=== PATIENT | female | born 1995 | race Caucasian/White ===

== ENCOUNTER 2017-08-03 20:32 | Emergency (ER) | payer BC, SELFPAY ==
[2017-08-03] MEDS ORDERED: Ondansetron ODT 4 MG TAB ONE (20:38)
[2017-08-03 23:17] LABS: #Eosinphils 0.2 thou/uL (0.0-0.7); #Lymphocytes 1.8 thou/uL (1.20-3.40); #Monocytes 0.5 thou/uL (0.11-0.59); #Neutrophils 8.4 thou/uL (1.40-6.50); %Basophils 0.5 % (0.0-1.0); %Lymphocytes 16.4 % (21.0-51.0); %Monocytes 4.6 % (0.0-10.0); %Neutrophils 76.5 % (42.0-75.0); Mean Corpuscular HGB CONC 33.4 g/dL (32.0-36.0); Mean Corpuscular Hemoglobin 31.5 pg (27.0-31.0); Mean Corpuscular Volume 94.4 fl (81.0-99.0); Mean Platelet Volume 9.1 fL (7.4-10.4); Platelet Count 262 thou/uL (130-400); RBC Distribution Width 11.5 % (11.5-14.5); Red Blood Cell (RBC) Count 5.09 mill/uL (4.20-5.40); White Blood Cell (WBC) Count 10.9 thou/uL (4.8-10.8)
[2017-08-03 23:26] LABS: ALT (SGPT) 43 U/L (8-55); AST (SGOT) 17 U/L (5-34); Albumin 4.9 g/dL (3.5-5.0); Alkaline Phosphatase 71 U/L (40-150); Anion Gap 13 mmol/L (10-20); BUN (Urea Nitrogen) 10 mg/dL (7.0-18.7); Calc. Creatinine Clearance 0 mL/min (70-130); Calcium 9.6 mg/dL (7.8-10.44); Carbon Dioxide 23 mmol/L (22-29); Chloride 106 mmol/L (98-107); Estimated GFR-MDRD Greater than 90; Globulin 3.6 g/dL (2.4-3.5); Glucose 93 mg/dL (70-105); Lipase 16 U/L (8-78); Potassium 3.4 mmol/L (3.5-5.1); Protein, Total 8.5 g/dL (6.0-8.3); Sodium 139 mmol/L (136-145)
== END 2017-08-04 00:44 | disposition home or self-care (01) ==
LOC: ERS 20:32
DX: R11.2 Nausea with vomiting, unspecified (principal); R19.7 Diarrhea, unspecified; J45.909 Unspecified asthma, uncomplicated; F17.210 Nicotine dependence, cigarettes, uncomplicated; Z71.6 Tobacco abuse counseling
CPT/HCPCS: 80053; 83690; 85025; 96361; 96372; 96374; 99406; J2270; Q0162

== ENCOUNTER 2017-08-05 11:07 | Emergency (ER) | payer SELFPAY ==
[2017-08-05 12:08] LABS: Bilirubin Negative (Negative); Blood, Urine Negative (Negative); Clarity CLEAR (Clear); Glucose, Urine (Dipstick) Negative (Negative); Leukocyte Small (Negative); Nitrite Negative (Negative); Protein, Urine (Dipstick) Negative (Neg-Trace); Specific Gravity, Urine 1.017 (1.002-1.036); Urobilinogen 0.2 mg/dL (0.2-1.0)
[2017-08-05 12:09] LABS: Pregnancy Test - Urine (BHCG) Negative (Negative); Pregu Control Background? CLEAR/WHITE (CLR/WHITE); Pregu Control Bar Appear? YES (CONTROL BAR); Specific Gravity 1.017 (1.002-1.036)
[2017-08-05 12:11] LABS: Bacteria/HPF 1+ HPF (None Seen); Hyaline Casts/LPF 0-3 HYALINE CAST LPF (0-3 Hyaline); RBC/HPF 0-3 HPF (0-3); Squamous Epithelial 0-3 HPF (0-3); WBC/HPF 0-3 HPF (0-3)
[2017-08-05 12:33] LABS: #Basophils 0.1 thou/uL (0.0-0.2); #Eosinphils 0.1 thou/uL (0.0-0.7); #Lymphocytes 1.9 thou/uL (1.20-3.40); #Monocytes 0.5 thou/uL (0.11-0.59); #Neutrophils 3.6 thou/uL (1.40-6.50); %Basophils 1.5 % (0.0-1.0); %Eosinophils 1.9 % (0.0-10.0); %Lymphocytes 30.6 % (21.0-51.0); %Monocytes 8.5 % (0.0-10.0); %Neutrophils 57.6 % (42.0-75.0); Hemoglobin 14.3 g/dL (12.0-16.0); Mean Corpuscular HGB CONC 33.9 g/dL (32.0-36.0); Mean Corpuscular Hemoglobin 31.7 pg (27.0-31.0); Mean Corpuscular Volume 93.5 fl (81.0-99.0); Mean Platelet Volume 8.5 fL (7.4-10.4); Platelet Count 231 thou/uL (130-400); RBC Distribution Width 11.3 % (11.5-14.5); Red Blood Cell (RBC) Count 4.52 mill/uL (4.20-5.40); White Blood Cell (WBC) Count 6.3 thou/uL (4.8-10.8)
[2017-08-05 12:51] LABS: ALT (SGPT) 33 U/L (8-55); AST (SGOT) 11 U/L (5-34); Alkaline Phosphatase 62 U/L (40-150); Anion Gap 8 mmol/L (10-20); BUN (Urea Nitrogen) 8 mg/dL (7.0-18.7); Bilirubin, Total 0.9 mg/dL (0.2-1.2); Calc. Creatinine Clearance 0 mL/min (70-130); Carbon Dioxide 27 mmol/L (22-29); Chloride 104 mmol/L (98-107); Estimated GFR-MDRD Greater than 90; Globulin 2.8 g/dL (2.4-3.5); Glucose 87 mg/dL (70-105); Potassium 3.3 mmol/L (3.5-5.1); Protein, Total 6.8 g/dL (6.0-8.3); Sodium 136 mmol/L (136-145)
== END 2017-08-05 15:32 | disposition home or self-care (01) ==
LOC: ERS 11:07
DX: R19.7 Diarrhea, unspecified (principal); J45.909 Unspecified asthma, uncomplicated; F17.200 Nicotine dependence, unspecified, uncomplicated
CPT/HCPCS: 36415; 80053; 81003; 81015; 81025; 82274; 83630; 85025; 87045; 87046; 87449; 87899; 99284

== ENCOUNTER 2019-05-06 18:30 | Day surgery (SDC) | payer OTHER ==
[2019-05-06] MEDS ORDERED: hydrALAZINE 20 MG/ML VIAL SLOW IVP PRN (19:50)
--- NOTE | 2019-05-06 20:11 | HP ---
TIME OF EVALUATION: 1950 hours. LOCATION: Triage bed A. This is a patient of Dr. Susan Pimentel. REASON FOR EVALUATION: Decreased movement at 29 weeks. HISTORY OF PRESENT ILLNESS: This is a 24-year-old G1 at 29 weeks and 1 day with decreased movement. She denies contractions or leakage of fluid or vaginal bleeding. She denies any recent trauma. She denies any other issues. REVIEW OF SYSTEMS: Complete review of systems was completed and is otherwise negative unless specified in the HPI. PAST MEDICAL HISTORY: Negative. PAST SURGICAL HISTORY: Tonsils and adenoids. ALLERGIES: NONE. SOCIAL HISTORY: Noncontributory. OB HISTORY: She is a G1, P0. PHYSICAL EXAMINATION: VITAL SIGNS: Blood pressure is 127/59, pulse is 80, respirations are 20 unlabored, and her temperature is 98.7. GENERAL: She is in no acute distress. ABDOMEN: Soft and nontender. PELVIC: Deferred as there is no evidence of contractions or labor. On monitor, heart tones are in the 130s to 140s with moderate variability and criteria is met for reactive nonstress test. No contractions were evident on tocodynamometer. ASSESSMENT: This is a 29 week with decreased movement, which may be likely due to gestational age. No evidence of compromise at this time based on nonstress test. PLAN: 1. Reassurance given based on nonstress. 2. Okay for a short-term followup. 3. No evidence of labor. Job ID: [id number]
[2019-05-06 20:34] VITALS: BP 127/59; TEMP 98.7; BMI 33.3
== END 2019-05-06 20:15 | disposition home or self-care (01) ==
LOC: L&D/OP 18:30
PROVIDERS: ATTEND Obstetrics & Gynecology
DX: O36.8130 Decreased fetal movements, third trimester, not applicable or unspecified (principal); Z3A.29 29 weeks gestation of pregnancy

== ENCOUNTER 2019-07-10 04:48 | Day surgery (SDC) | payer OTHER ==
[2019-07-10 05:23] VITALS: BMI 40.9
[2019-07-10] MEDS ORDERED: hydrALAZINE 20 MG/ML VIAL SLOW IVP PRN (05:46)
--- NOTE | 2019-07-10 05:46 | PDOC.FPROB ---
FMR OB H&P: HPI - History of Present Illness Chief Complaint: contractions Indentification: 24 yo at 38.3 wga by LMP/1T sono History of Present Illness: Pt is here for contractions which started at 23:30 on 07/09/2019. Describes them as stomach tightening. Denies vaginal pressure/pelvic or back pain.Was in [place] w/ mother so they drove here. Contractions intermittent at first but have become regular, ~every 3-4 min. Denies VB, LOF. +FM. Some vaginal discharge lately which she thinks is her mucus plug. +nausea and vomiting w/ contractions. Unable to keep much water down lately. Has felt lightheaded at times and experienced hot flashes; would lay down and feel better. Primary Care Physician: KARLEY: Alfredo FMR OB H&P: Current - Care : 1 Para: 0 Gestational age: 38.3 Due date: 07/21/2019 Dating Criteria: LMP/1T sono Course/Complications: Obesity. Denies taking PNV. 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 - Family History Family History: Denies FMR OB H&P: Medications - Current Allergies/Adverse Reactions: Allergies Allergy/AdvReac Type Severity Reaction Status Date / Time No Known Allergies Allergy Verified 05/06/19 19:36 FMR OB H&P: ROS - Review of Systems General: reports: fatigue (sleeping more than usual lately), recent trauma ( slipped down 3 steps 2 days ago, did not note any problems afterwards). denies : fever/chills ENT: denies: nasal congestion, rhinorrhea Cardiovascular: reports: edema (in upper and lower extremities w/ ). denies: chest pain Respiratory: denies: cough, shortness of breath Gastrointestinal: reports: abdominal pain, nausea, vomiting. denies: diarrhea Genitourinary (Female): reports: vaginal discharge, contractions. denies: dysuria, hematuria, vaginal pain, vaginal bleeding, vaginal pressure Musculoskeletal: denies: pain Neurologic: denies: numbness, syncope, loss of counsciousness Integumentary: denies: itching Hematologic/Lymphatic: denies: prolonged or excessive bleeding Psychological: denies: depression, anxiety FMR OB H&P: Vital Signs - Maternal Vital signs: BP 130s/80s. - Heart Tones Baseline: 140 (reactive) Variability: moderate Acceleration: present Deceleration: absent Category: category 1 [place] contractions every: 2-4 minutes FMR OB H&P: Physical Exam - Physical Exam General: NAD, awake, alert and oriented (talking normally in full sentences) HEENT: normocephalic and atraumatic, conjunctiva clear, grossly normal vision, grossly normal hearing Deviation from normal: mucus membranes appear dry Neck: trachea midline Heart: RRR, normal S1/S2, no murmurs/rubs/gallops Deviation from normal: mild nonpitting edema bilaterally in LE General: CTAB, no respiratory distress Abdomen: soft, gravid Musculoskeletal: pulses present Skin: no rash Lymphatic: no unusual bruising or bleeding - Pelvic Exam SVE: 1/thick/high per nursing Membranes: intact Presentation: cephalic per nursing on cervical check Estimated Weight: 9 lbs FMR OB H&P: A/P - Problem List (1) Term Current Visit: Yes Status: Acute Code(s): Z34.90 - ENCNTR FOR SUPRVSN OF NORMAL , UNSP, UNSP TRIMESTER Disposition: observe on L&D. Discussion: Date/Time: 07/10/19 0546 24 yo here for: Contractions - continuous EFM/toco monitoring on L&D for next 1-2 hours - 1/thick/high on SVE - will recheck in 1-2 hours - pt appears comfortable and not in acute distress w/ contractions. Nausea, vomiting Dehydration - will give SL zofran - encourage oral hydration after zofran is given. - if not tolerating oral hydration, will give 1 L of fluids Term IUP - scheduled to see PCP today at 11:00. This H&P was discussed with Dr. Grissom and Dr. Chairez, who agree with the above documentation and plan. Signature: Preston Judge MD PGY1
[2019-07-10] MEDS ORDERED: Ondansetron ODT 8 MG TAB SL SCH ×2 (05:47→06:00)
--- NOTE | 2019-07-10 06:25 | PDOC.BPN ---
- Brief Progress Note Pt was given sublingual zofran. Is feeling better. Contractions have spaced out some. She is not feeling contractions much and is quite comfortable. Recheck of cervix is the same: 1/thick/high. She may f/u w/ PCP at her appt today. We will d/c her with some zofran for nausea/vomiting. Encourage oral hydration. Return/labor precautions given. Discussed w/ Dr. Chairez who agrees w/ plan.
== END 2019-07-10 06:42 | disposition home or self-care (01) ==
LOC: L&D/OP 04:48
PROVIDERS: ATTEND Family Medicine
DX: O47.1 False labor at or after 37 completed weeks of gestation (principal); O99.283 Endocrine, nutritional and metabolic diseases complicating pregnancy, third trimester; E86.0 Dehydration; Z3A.38 38 weeks gestation of pregnancy
CPT/HCPCS: 99282

== ENCOUNTER 2019-07-10 20:28 | Inpatient (IN) | payer OTHER ==
[2019-07-10] MEDS ORDERED: Ondansetron PF 4 MG/2 ML Vial IVP PRN ×2 (21:07→22:48)
[2019-07-10] MEDS ORDERED: Promethazine HCl 25 MG/ML VIAL IM PRN ×2 (21:07→22:48)
[2019-07-10] MEDS ORDERED: hydrALAZINE 20 MG/ML VIAL SLOW IVP PRN (21:07)
[2019-07-10] MEDS ORDERED: Lidocaine 1% (PF) 30 ML VIAL SC PRN (21:07)
[2019-07-10] MEDS ORDERED: NS / Oxytocin 40 units/1000ml 1,000 ML IV PRN (21:07)
[2019-07-10 21:12] VITALS: BMI 40.8
[2019-07-10] MEDS: Lactated Ringer's 1,000 ML IV SCH ×2 (21:25→22:01)
[2019-07-10 21:42] LABS: Hemoglobin 12.9 g/dL (12.0-16.0); Mean Corpuscular HGB CONC 33.6 g/dL (32.0-36.0); Mean Corpuscular Hemoglobin 28.6 pg (27.0-31.0); Mean Corpuscular Volume 85.1 fL (78.0-98.0); Mean Platelet Volume 9.8 fL (7.4-10.4); Platelet Count 254 thou/uL (130-400); RBC Distribution Width 14.1 % (11.5-14.5); Red Blood Cell (RBC) Count 4.49 mill/uL (4.20-5.40); White Blood Cell (WBC) Count 12.5 thou/uL (4.8-10.8)
[2019-07-10] MEDS ORDERED: Fentanyl 4 mcg/Bup 0.1% Cadd 100 ML ONE (21:47)
[2019-07-10] MEDS ORDERED: Lidocaine 1.5%/Epinephrine 1:200,000 5 ML AMPUL IJ ONE (22:10)
[2019-07-10] MEDS ORDERED: Fentanyl 100 MCG/2 ML VIAL ONE (22:10)
--- NOTE | 2019-07-10 22:14 | PDOC.FPROB ---
FMR OB H&P: HPI - History of Present Illness Chief Complaint: water broke Indentification: 24 yo at 38.3 wga by LMP/1T sono History of Present Illness: Pt here because her water broke at 18:11 this evening. Described as some leaking , went to bathroom, followed by big gush of fluid. Has been having contractions since this AM. No VB. +FM. 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 - Social History Social History: denies - Family History Family History: denies FMR OB H&P: Medications - Current Home Medications: Medication Instructions Recorded Confirmed Type Ondansetron [Zofran ODT] 4 mg PO Q6HR PRN 7 Days #20 tab 07/10/19 Rx Allergies/Adverse Reactions: Allergies Allergy/AdvReac Type Severity Reaction Status Date / Time No Known Allergies Allergy Verified 07/10/19 21:14 FMR OB H&P: ROS - Review of Systems General: denies: fever/chills, weight/appetite/sleep changes, recent trauma Eyes: denies: vision changes ENT: denies: nasal congestion, sore throat Cardiovascular: denies: chest pain Respiratory: denies: cough, shortness of breath Gastrointestinal: denies: abdominal pain, nausea, vomiting Genitourinary (Female): reports: vaginal pain, contractions, vaginal pressure. denies: dysuria, vaginal discharge, vaginal bleeding Musculoskeletal: denies: pain Neurologic: denies: seizures Integumentary: denies: itching, rash Hematologic/Lymphatic: denies: prolonged or excessive bleeding Psychological: denies: depression, anxiety FMR OB H&P: Vital Signs - Maternal Vital signs: vital signs wnl - Heart Tones Baseline: 120 Variability: moderate Acceleration: present Deceleration: absent Category: category 1 [place] contractions every: 2-4 min FMR OB H&P: Physical Exam - Physical Exam General: NAD, awake, alert and oriented HEENT: normocephalic and atraumatic, conjunctiva clear, no scleral icterus, grossly normal vision, grossly normal hearing Neck: supple, FROM, trachea midline Breast: symmetric Heart: RRR, normal S1/S2, no murmurs/rubs/gallops General: CTAB, no respiratory distress, no wheezing Abdomen: soft, gravid Musculoskeletal: normal gait and station Neurological: no focal deficit Skin: no rash, good tugor Lymphatic: no unusual bruising or bleeding Psychiatric: intact recent and remote memory, normal mood and affect - Pelvic Exam SVE: 5 cm per nursing Membranes: ruptured, leaking fluid Presentation: cephalic Estimated Weight: 9 lbs FMR OB H&P: Results - Labs Lab results: Laboratory Results - last 24 hr 07/10/19 07/10/19 21:34 21:34 WBC 12.5 H RBC 4.49 Hgb 12.9 Hct 38.2 MCV 85.1 MCH 28.6 MCHC 33.6 RDW 14.1 Plt Count 254 MPV 9.8 Blood Type A POSITIVE Antibody Screen NEGATIVE FMR OB H&P: A/P - Problem List (1) Active labor at term Current Visit: Yes Status: Acute Code(s): YCR1123 - (2) SROM (spontaneous rupture of membranes) Current Visit: Yes Status: Acute Code(s): [id number] - (3) Term Current Visit: No Status: Acute Code(s): Z34.90 - ENCNTR FOR SUPRVSN OF NORMAL , UNSP, UNSP TRIMESTER Disposition: admit to L&D for anticipation of Discussion: Date/Time: 07/10/19 2213 24 yo presents at 38.3 wga for: SROM during latent phase of labor Now in active phase at Term - pt at L&D earlier this AM for contractions but not making cervical change. - SROM at 18:11 and contractions ensued - admit to L&D - routine orders - cervical checks q2h - GBS negative, no abx ppx - anticipate This H&P was discussed with Dr. Grissom and Dr. Cochran, who agree with the above documentation and plan. Signature: Marvin Judge MD PGY1
[2019-07-10 22:23] LABS: Syphilis Antibody Nonreactive (Nonreactive); Syphilis Antibody Index 0.05 S/CO (<1.00 Non-Reactive)
[2019-07-10] MEDS ORDERED: Bupivacaine 0.25% HCL 30 ML VIAL ONE (22:31)
[2019-07-10] MEDS ORDERED: Acetaminophen 325 MG TAB PO PRN (22:48)
[2019-07-10] MEDS ORDERED: Lactated Ringer's 500 ML IV PRN (22:48)
[2019-07-10] MEDS ORDERED: diphenhydrAMINE 50 MG/ML VIAL IVP PRN (22:48)
[2019-07-10] MEDS ORDERED: ePHEDrine/0.9% NaCl/PF SYRINGE 50 mg/10 ml SLOW IVP PRN (22:48)
[2019-07-10] MEDS ORDERED: Naloxone HCl 0.4 mg/ml Vial IVP PRN ×2 (22:48)
[2019-07-10] MEDS ORDERED: Fentanyl 4 mcg/Bupivacaine 0.1% Cassette 100 ML EPIDURAL SCH (23:00)
[2019-07-10] MEDS ORDERED: Communication Order-Pharmacy FS SCH (23:00)
--- NOTE | 2019-07-10 23:10 | PDOC.BPN ---
- Brief Progress Note /-1 cxns q2-4, good variability, accels present, no decels epidural in place GBS neg expectant mgmt
[2019-07-10 23:16] LABS: HBSAg Index 0.34 S/CO (0-0.99); Hep B Surf Ag Non-Reactive S/CO (NonReactive)
[2019-07-11] MEDS ORDERED: NS / Oxytocin 40 units/1000ml 1,000 ML ONE (00:40)
[2019-07-11] MEDS ORDERED: Lidocaine 1% (PF) 30 ML VIAL ONE (00:40)
--- NOTE | 2019-07-11 01:01 | PDOC.BPN ---
- Brief Progress Note Nurse checked pt who was feeling pressure. SVE: complete/0. Updated Dr. Fuentes, Dr. Cochran Anticipate . Will begin pushing upon above physicians arrival.
--- NOTE | 2019-07-11 02:05 | PDOC.OPDEL ---
OB Operative/Delivery Note Delivery Dr/Surgeon: Alfredo Judge Assist: Dimas (attending) Pre-Delivery Diagnosis: active labor Procedure/Post Delivery Dx: spontaneous vaginal delivery Weeks gestation: 38 (38.4 wga) Anesthesia: local - Additional Findings/Plan Placenta delivered: spontaneous Repaired Obstetrical Laceration: 2nd degree Compilations/Other Findings: Procedure: Spontaneous Vaginal Delivery Anesthesia: epidural, Local for Repair QBL: 550 ml Pre-op Diagnosis: 1. Term intrauterine in labor 2. Hx of macrosomia, hx of preeclampsia, hx of infections Post-op Diagnosis: 1. Term intrauterine , delivered 2. same as above Indications: A 24y/o female presents in active labor Delivery Note: This is 24yo F @ 38.4 wks who delivered a viable F at 0131. Following an uneventful antepartum course, a vigorous female was delivered over an intact perineum in the R occipitoanterior position. Anterior Shoulder and then remainder of the body delivered. No nuchal cord. The head was held down and mouth and nares were bulb suctioned. Cord clamped after delayed cord clamping and cut and cord blood collected. Placenta delivered intact in the [place] presentation with a 3 vessel cord noted. Fundal massage was performed and the fundus was firm. The cervix and vagina were inspected and found to have 2nd deg laceration noted and repaired in the usual fashion with good approximation and hemostasis after a local anesthetic was injected at site. Infant went to nursery in good condition for routine care. Apgars were 8/9 at 1 & 5 minutes, respectively. Patient tolerated delivery well and went to after routine recovery/care. Post delivery plan: routine recovery Addendum - Attending - Attending Attestation Date/Time: 07/11/19 1252 I was present, assisted and supervised the of this viable female over an intact perineum @0131 on 07/11/2019. This is a 24 yo @38.4 weeks who presented c/o ctx and LOF. She was found to be 6cm in active labor with Category 1 FHTs. She progressed rapidly to complete and had a of a viable female . Apgars 9/9. Loose body cord. Shoulders and body delivered easily Cord clamped and cut. 3V cord. Placenta delivered spontaneously and intact. 2* perineal laceration repaired with 3-0 vicryl in usual fashion. Good hemostasis. QBL 550 mL. Resident: Juan
[2019-07-11] MEDS ORDERED: Bisacodyl 10 MG SUPP PR PRN (03:38)
[2019-07-11] MEDS ORDERED: hydrALAZINE 20 MG/ML VIAL SLOW IVP PRN (03:38)
[2019-07-11] MEDS ORDERED: Ondansetron PF 4 MG/2 ML Vial IVP PRN (03:38)
[2019-07-11] MEDS ORDERED: NS / Oxytocin 40 units/1000ml 1,000 ML IV SCH (03:38)
[2019-07-11] MEDS ORDERED: Lanolin Ointment 7 GM TUBE TOP PRN (03:38)
[2019-07-11] MEDS ORDERED: Preparation H Ointment 57 gram tube RC PRN (03:38)
[2019-07-11] MEDS ORDERED: Milk Of Magnesia 30 ML UDCUP PO PRN (03:38)
[2019-07-11] MEDS ORDERED: Benzocaine-Menthol 82.5 ML CAN TOP PRN (03:38)
[2019-07-11] MEDS ORDERED: Ibuprofen 800 MG TAB PO SCH ×2 (03:45→06:00)
[2019-07-11] MEDS ORDERED: Adacel (T-DAP) 0.5 ML SYRINGE IM ONE (09:00)
[2019-07-11] MEDS: Docusate Calcium (SURFAK) 240 MG CAP PO SCH ×2 (09:37→19:36)
[2019-07-11] MEDS: Prenatal Vitamin 1 TAB PO SCH (09:37)
[2019-07-11] MEDS: Ferrous Sulfate 325 MG TAB PO SCH ×2 (09:40→18:20)
[2019-07-11] MEDS: Ibuprofen 800 MG TAB PO SCH ×2 (11:37→19:36)
[2019-07-12] MEDS: Ibuprofen 800 MG TAB PO SCH (04:53)
--- NOTE | 2019-07-12 06:50 | PDOC.PP ---
Post Progress Note Post Day #: 3 Subjective: doing well, resting comfortably in bed. reports very minimal bleeding now. PO intake tolerated: yes Flatus: yes Ambulation: yes Vital Signs (12 hours) Temp Pulse Resp BP Pulse Ox 07/11/19 20:00 98.0 F 95 16 113/68 98 Weight Weight 101.151 kg - Physical Examination General: NAD Cardiovascular: no m/r/g Respiratory: clear to auscultation bilaterally Abdominal: + bowel sounds, no distention, appropriately TTP Extremities: negative homans (B) Skin: no rash Neurological: no gross focal deficits Psychiatric: A&Ox3, normal affect Result Diagrams: 07/10/19 21:34 Additional Labs: Post Labs Blood Type A POSITIVE 07/10/19 22:01 Hep Bs Antigen Non-Reactive S/CO (NonReactive) 07/10/19 21:34 (1) Term Code(s): Z34.90 - ENCNTR FOR SUPRVSN OF NORMAL , UNSP, UNSP TRIMESTER Status: Acute - Assessment/Plan s/p - routine PP care, pain control - GBS neg, hb wnl before delivery, no pph - consult - stable for DC Addendum - Attending - Attending Attestation Date/Time: 07/12/19 4832 I personally evaluated the patient and discussed the management with Dr. Fuentes I agree with the History, Examination, Assessment and Plan documented above with any addition or exceptions noted below - Patient without complaints. Ambulating/ voiding. Afebrile VSS. A/P: 1) PPD#1 s/p - doing well. Plan to d /c home today and follow-up in 6 weeks for visit.
[2019-07-12] MEDS: Ferrous Sulfate 325 MG TAB PO SCH (08:56)
[2019-07-12 09:03] VITALS: BP 115/57; TEMP 98.4
[2019-07-12] MEDS: Docusate Calcium (SURFAK) 240 MG CAP PO SCH (09:20)
[2019-07-12] MEDS: Prenatal Vitamin 1 TAB PO SCH (09:20)
== END 2019-07-12 13:10 | disposition home or self-care (01) | DRG 807 ==
LOC: L&D/OP 20:28 → L&D 07-11 01:55 → 3SW 07-11 04:46
PROVIDERS: ADMIT Family Medicine; ATTEND Family Medicine
PROC: 10E0XZZ Delivery of Products of Conception, External Approach (ICD-10-PCS; principal; 2019-07-11)
PROC: 0KQM0ZZ Repair Perineum Muscle, Open Approach (ICD-10-PCS; 2019-07-11)
DX: O99.354 Diseases of the nervous system complicating childbirth (principal); Z37.0 Single live birth; Z3A.38 38 weeks gestation of pregnancy; G43.909 Migraine, unspecified, not intractable, without status migrainosus; O70.1 Second degree perineal laceration during delivery
CPT/HCPCS: 36415; 51702; 85027; 86780; 86850; 86900; 86901; 87340; 99282; 99285; J2001; J3010; J3490; S0020